=== PATIENT | male | born 1995 | race African-American/Black ===

== ENCOUNTER 2023-11-12 13:21 | Emergency (ER) | payer OTHER, SELFPAY ==
[2023-11-12 13:28] VITALS: BP 133/63; PULSE 79; RESP 16; TEMP 36.5; O2SAT 98
[2023-11-12 13:38] VITALS: BP 133/63; PULSE 79; RESP 16; TEMP 36.5; O2SAT 98
--- NOTE | 2023-11-12 14:04 | ED.SKABFB ---
HPI - Skin/Abscess/Foreign Bdy General Chief complaint: Skin/Abscess/Foreign Body Stated complaint: Skin Sore Under Left Arm Time Seen by Provider: 11/12/23 14:04 Source: patient, RN notes reviewed and old records reviewed Mode of arrival: ambulatory Limitations: no limitations History of Present Illness HPI narrative: 28-year-old male to Express Care for complaint of lesion to left axilla for 5 days. Patient states it is raised, painful. Patient denies fever, allergies, pertinent medical history. Patient resting in exam room comfortably in no acute distress. Related Data Allergies Allergy/AdvReac Type Severity Reaction Status Date / Time No Known Allergies Allergy Verified 11/12/23 13:30 Review of Systems Review of Systems: All systems reviewed & are unremarkable except as noted in HPI and below Constitutional: Constitutional: Reports no additional constitutional complaints Eyes: Eyes: Reports no additional eye complaints ENT: Reports system reviewed and no additional complaints, except as documented Cardiovascular: Cardiovascular: Reports no additional cardiovascular complaints, Denies chest pain and Denies dyspnea Respiratory: Respiratory: Reports no additional respiratory complaints, Denies cough and Denies dyspnea Musculoskeletal: Musculoskeletal: Reports no additional musculoskeletal complaints Integumentary/Breasts: Skin/Breast: Reports as per HPI and Reports lesions ( left axilla) Neurologic: Reports system reviewed and no additional complaints, except as documented Psychiatric: Psychiatric: Reports no additional psychiatric complaints PMFSH Comments At the time of my signature, I reviewed and agree with the nursing past medical, surgical, social, and family history. There is no relevant family history pertinent to the patient complaint. Exam Const: General: cooperative, healthy appearing, comfortable, no acute distress, alert and well nourished Nutritional Appearance: well nourished Orientation/consciousness: patient oriented x3 Limitations: no limitations HENMT: Head: normal to inspection Ears: external ears normal Face/Nose/Sinus: Normal external nose present, Normal nares present, normal facial exam, No erythema and No edema Face and sinus: normal facial exam, no erythema and no edema Mouth: Yes Normal oral and palatal mucosa present Eyes: General: appearance normal, both eyes and all related structures Neck: Neck: normal visual inspection, full ROM and no meningeal signs Lymphatic: no lymphadenopathy noted and no lymphedema noted Chest: Chest palpation & inspection: normal inspection of the chest Resp: Effort & Inspection: normal respiratory effort and able to speak in complete sentences Auscultation: clear to auscultation bilaterally Cardio: Jugular venous distension: no JVD Rate: regular rate Rhythm: regular rhythm Back/Spine/Pelvis: Cervical Spine: cervical ROM normal Skin: General skin exam: normal color, no rashes or lesions noted and turgor normal Neuro: General: patient oriented x3, gait normal, moves all extremities and no meningeal signs Speech: normal speech Gait exam (Neuro): Normal gait present Extrem: General: normal to inspection, full ROM and capillary refill normal Psych: Appearance: grossly normal and well kempt Course Course Emergency Course: Some parts of this dictation were generated by voice recognition software and may contain typographical and/or grammatical inaccuracies. Level of Care: Express Care Visit Vital Signs Vital signs: Vital Signs Temperature 36.5 C 11/12/23 13:28 Pulse Rate 79 11/12/23 13:28 Respiratory Rate 16 11/12/23 13:28 Blood Pressure 133/63 11/12/23 13:28 Pulse Oximetry 98 11/12/23 13:28 Oxygen Delivery Room Air 11/12/23 13:28 Temperature 36.5 C 11/12/23 13:38 Pulse Rate 79 11/12/23 13:38 Respiratory Rate 16 11/12/23 13:38 Blood Pressure 133/63 11/12/23 13:38 Pulse Oximetry 98
== END 2023-11-12 14:20 | disposition home or self-care (01) ==
PROVIDERS: Emergency Provider Nurse Practitioner Family
DX: L02.412 Cutaneous abscess of left axilla (principal)
CPT/HCPCS: 99203; G0463

== ENCOUNTER 2024-02-12 15:30 | Emergency (ER) | payer OTHER, SELFPAY ==
[2024-02-12 15:39] VITALS: BP 124/65; PULSE 96; RESP 16; TEMP 36.7; O2SAT 100
--- NOTE | 2024-02-12 15:59 | ED.SKABFB ---
HPI - Skin/Abscess/Foreign Bdy General Chief complaint: Skin/Abscess/Foreign Body Stated complaint: abcess under left arm Time Seen by Provider: 02/12/24 15:50 Source: patient, RN notes reviewed and old records reviewed Mode of arrival: ambulatory Limitations: no limitations History of Present Illness HPI narrative: 29 year old male presents to [facility] care with complaints of abscess to his left axilla which he noted 2 days ago. Patient reports pain and swelling to his left axilla for the post 2 days with firm hard area palpable. Patient reports that he has had previous abscess to left axilla in past that drained after receiving antibiotics. Patient has no pustules or any fluctuation of tissue to his axilla. He reports that he has been applying warm compresses to his left axilla and has also been taking Ibuprofen. MD complaint: abscess/boil Onset (ago): day(s) (2) Location: LUE (axilla) Severity scale (1-10): 8 Quality: other (throbbing) Exacerbating factors: palpation Treatments prior to arrival: other (Ibuprofen and warm compresses) Related Data Allergies Allergy/AdvReac Type Severity Reaction Status Date / Time No Known Allergies Allergy Verified 11/12/23 13:30 Review of Systems Review of Systems: CONSTITUTIONAL: Denies fever, chills, or sweats. CARDIOVASCULAR: Denies chest pain, palpitations, or edema. RESPIRATORY: Denies cough or dyspnea. GASTROINTESTINAL: Denies abdominal pain, nausea, vomiting SKIN: Reports swelling with firm palpable lump in left axilla painful with no fluctuation of tissue or acute warm, no pustule formation or drainage. MUSCULOSKELETAL: Denies myalgia. NEUROLOGIC: Denies headache, numbness All systems reviewed & are unremarkable except as noted in HPI and below [facility] Past Medical History Medical History (Updated 02/13/24 @ 00:01 by Victor Manuel Ng) Abscess of left axilla Surgical History Surgical History (Updated 02/14/24 @ 21:05 by Rachelle Montejo NP) History of tonsillectomy Social History Social History (Updated 02/14/24 @ 21:04 by Rachelle Montejo NP) Smoking status: Current every day smoker Tobacco type: e-cigarettes/vaping Alcohol intake: current Alcohol use details: social Substance use type: does not use Living arrangements: with family Gender identity (if verbalized by the patient): Male Comments At time of signature, agree with nursing past medical, surgical, social and family history. There is no relevant family history pertinent to the presenting complaint Exam Narrative: GENERAL: Well-appearing, well-nourished, and in no acute distress. HEAD: Normocephalic, atraumatic. EYES: PERRLA and EOMI. ENT: Nares clear, no rhinorrhea or epistaxis. Mucous membranes moist. NECK: Supple.no lymphadenopathy CHEST: Clear to auscultation. No respiratory distress.[id number]% on room air HEART: Regular rate and rhythm. No murmur heard. Normal peripheral pulses. ABDOMEN: Soft, nontender, nondistended, normal active bowel sounds. EXTREMITIES: Normal range of motion. No edema. SKIN: Warm, dry.palpable firm tissue to left axilla, induration, tenderness,no fluctuation or any drainage from axilla, is painful NEURO: No focal deficits. Alert and oriented x3. Course Course Emergency Course: Patient is aware of diagnosis, understands and agrees to treatment plan. Anticipatory guidance given. Patient agrees to follow-up as directed and is aware of reasons to seek care at the emergency department. Portions of this record may have been created with voice recognition software Level of Care: Express Care Visit Vital Signs Vital signs: Vital Signs Temperature 36.7 C 02/12/24 15:39 Pulse Rate 96 02/12/24 15:39 Respiratory Rate 16 02/12/24 15:39 Blood Pressure 124/65 02/12/24 15:39 Pulse Oximetry 100 02/12/24 15:39 Oxygen Delivery Room Air 02/12/24 15:39 Temperature 36.7 C 02/12/24 15:39 Pulse Rate 96 02/12/24 15:39 Respiratory Rate 16 02/12/24 15:39 Blood Pressure 124/65 02/12/24 15:39 Pulse Oximetry 100 02/12/24 15:39 Oxygen Delivery Room Air 02/12/24 15:39 Reviewed MDM - Skin/Abscess/Foreign Bdy MDM Narrative Medical decision making narrative: Does not appear at this time to be erythema multiforme, bullous, SJS, TEN; no evidence at this time to suggest RMSF, endocarditis or Lyme disease; patient looks well, nontoxic and is tolerating oral intake; no neurologic signs or symptoms; no headache, photophobia or neck pain; afebrile; appropriate for initial outpatient treatment; discussed the importance of follow-up, patient agrees. Patient does not have history of penetrating trauma, laceration, blunt trauma, recent surgery, immunosuppression, malignancy, obesity, alcoholism, corticosteroid use. Question cellulitis, necrotizing soft tissue infection, abscess. Differential Diagnosis Differential diagnosis: Likely abscess of skin or subcutaneous tissue, cellulitis, eczema and contact dermatitis Medical Records Attestation: I reviewed the patient's medical records. Critical Care Time Critical Care Time Critical Care Time: No Discharge Plan Discharge Clinical Impression: Abscess of left axilla Patient Disposition: Home, Self-Care Condition: Stable Instructions: Antibiotic Form, Abscess (ED) Additional Instructions: Cleanse left axilla with liquid Dial soap twice daily apply warm compresses 3-4 times daily do not squeeze watch for increasing infection--redness, swelling, drainage Tylenol or ibuprofen for any fever pain follow up with PCP in 7-10 days for a wound check recheck if develop fever, chills, increasing symptom Go to the ER if your symptoms become worse of if ANY new symptoms develop Antibiotics as prescribed complete all doses If your symptoms persist, change or worsen significantly before you can contact your personal physician then please, without delay, go to the emergency department for further evaluation. Follow-up with PCP in 7-10 days or sooner if needed Prescriptions: New clindamycin HCl 300 mg capsule 300 mg PO Q8H Qty: 30 0RF Follow-up/Referrals: PHYSICIAN,OCCUPATIONAL THERAPY ASSIST [Primary Care Provider] - Time of Disposition: 16:15 Quality [place] Coma Scale Eyes: Open Verbal: Oriented and Alert Motor: Follows Commands [place] Coma Total Score: 15
== END 2024-02-12 16:22 | disposition home or self-care (01) ==
PROVIDERS: Emergency Provider Registered Nurse
DX: L02.412 Cutaneous abscess of left axilla (principal); F17.290 Nicotine dependence, other tobacco product, uncomplicated
CPT/HCPCS: 99213; G0463